=== PATIENT | female | born 1990 | race American Indian/Alaskan Native ===

== ENCOUNTER 2017-04-23 06:27 | Day surgery (SDC) | payer BC ==
[2017-04-23] MEDS ORDERED: ZOFRAN ONE (07:07)
[2017-04-23] MEDS ORDERED: DECADRON ONE (07:07)
[2017-04-23] MEDS ORDERED: ZEMURON IV ONE (07:07)
[2017-04-23] MEDS ORDERED: XYLOCAINE MPF 2% ONE (07:07)
[2017-04-23] MEDS ORDERED: DIPRIVAN 10 MG/ML IV ONE ×2 (07:08→10:01)
[2017-04-23] MEDS ORDERED: SUBLIMAZE ONE ×2 (07:08→09:54)
--- NOTE | 2017-04-23 07:25 | Anesthesia Consultation ---
Anesthesia Consult and Med Hx Date of service: 04/23/17 - Airway Anesthetic Teeth Evaluation: Good ROM Head & Neck: Adequate Mental/Hyoid Distance: Adequate Mallampati Class: Class II Intubation Access Assessment: Probably Good - Pulmonary Exam CTA: Yes - Cardiac Exam Cardiac Exam: RRR - Pre-Operative Health Status ASA Pre-Surgery Classification: ASA2 Proposed Anesthetic Plan: General - Pulmonary Hx Smoking: No Hx Sleep Apnea: No - Cardiovascular System Hx Hypertension: Yes - Central Nervous System Hx Psychiatric Problems: No - Hematic Hx Anemia: Yes ("RESOLVED" ) - Other Systems Hx Alcohol Use: Yes Hx Substance Use: Yes (OCCASIONAL MARIJUANA 1/ EVERY 2 MONTHS) Hx Cancer: No Hx Obesity: Yes
--- NOTE | 2017-04-23 07:26 | Anesthesia Day of Surgery ---
Anesthesia Day of Surgery - Day of Surgery Patient Examined: Yes Patient H&P Reviewed: Yes Patient is NPO: Yes
[2017-04-23] MEDS ORDERED: PEPCID PO NR ×2 (08:00→10:00)
[2017-04-23] MEDS ORDERED: VERSED IV NR ×2 (08:00→10:00)
[2017-04-23] MEDS ORDERED: LACTATED RINGERS 1,000 ML IV SCH ×2 (08:00→10:00)
[2017-04-23] MEDS ORDERED: PERCOCET 5/325 PO PRN (09:19)
[2017-04-23] MEDS ORDERED: NEOSTIGMINE ONE (09:25)
[2017-04-23] MEDS ORDERED: ROBINUL ONE ×2 (09:25)
[2017-04-23] MEDS ORDERED: DILAUDID ONE (09:27)
--- NOTE | 2017-04-23 09:35 | Discharge Summary ---
Short Stay Discharge Plan Weight Bearing Status: Full Weight Bearing Diet: regular Wound: remove dressing (72hrs) Follow up with: PRIMARY CAREMD [Primary Care Provider] - 6 Weeks WORK,LUANNE Parsons JR, MD [Staff Physician] - 7 Days
--- NOTE | 2017-04-23 09:36 | Short Stay Summary ---
Short Stay Documentation Date of service: 04/23/17 - Allergies and Medications Current Medications: Allergies No Known Allergies Allergy (Verified 08/25/15 08:50) Home Medications Medication Instructions Recorded Confirmed Last Taken Type Ibuprofen [Motrin 600 MG tab] 600 mg PO Q6HR PRN 02/26/17 04/11/17 Unknown History Active Medications Famotidine (Pepcid) 20 mg PO PREOP NR Stop: 04/23/17 15:00 Hydromorphone HCl (Dilaudid) 0.5 mg IV Q10MIN PRN PRN Reason: Pain , Severe (7-10) Stop: 04/23/17 15:00 Lactated Ringer's (Lactated Ringers) 1,000 mls @ 100 mls/hr IV DIRECT BROOKS Midazolam HCl (Versed) 2 mg IV PREOP NR Stop: 04/23/17 23:59 - Brief post op/procedure progress note Date of procedure: 04/23/17 Pre-op diagnosis: Macromastia Post-op diagnosis: same Procedure: Bilateral Breast Reduction Anesthesia: GETA Surgeon: LUANNE CALIX JR Estimated blood loss: 50-100ml Specimen disposition: to lab Condition: stable - Hospital course Hospital course: Uneventful - Disposition Condition at discharge: Good Short Stay Discharge Plan Follow up with: LUANNE CALIX JR, MD [Staff Physician] - 7 Days PRIMARY CAREMD [Primary Care Provider] - 6 Weeks
[2017-04-23] MEDS ORDERED: WATER FOR IRRIG STERILE IR ONE (09:49)
[2017-04-23] MEDS ORDERED: ANCEF/STERILE WATER 2 GM/20 ML IV NR (11:00)
[2017-04-23] MEDS ORDERED: NEO SYNEPHRINE/NS Syringe(OR USE) IV ONE (11:00)
[2017-04-23] MEDS ORDERED: LACTATED RINGERS 1,000 ML ONE (11:11)
--- NOTE | 2017-04-23 13:02 | Post Anesthesia Evaluation ---
- Post Anesthesia Evaluation Patient Participated: Yes Airway Patent: Yes Stable Respiratory Function: Yes Nausea/Vomiting: No Temp > 96.8F: Yes Pain Manageable: Yes Adequeate Hydration: Yes Anesthesia Complications: No Block Receding Appropriately: Not Applicable Patient on Ventilator: No
[2017-04-23] MEDS: DILAUDID IV PRN ×4 (13:22→14:13)
[2017-04-23] MEDS ORDERED: TORADOL IV PRN (14:17)
[2017-04-23] MEDS ORDERED: TORADOL ONE (14:22)
[2017-04-23] MEDS ORDERED: TRANSDERM-SCOP TD ONE (16:20)
[2017-04-23] MEDS ORDERED: PERCOCET 5/325 PO ONE (16:20)
[2017-04-23 18:38] VITALS: BP 142/77
--- NOTE | 2017-05-14 02:55 | Operative Report ---
PREOPERATIVE DIAGNOSIS: Macromastia. POSTOPERATIVE DIAGNOSIS: Macromastia. PROCEDURE: Bilateral reduction mammoplasty. SURGEON: Jaylen Luis MD. FORESTRY BIOLOGY SPECIALIST: Beto Villavicencio CSA FINDINGS: Right breast 1880 g removed, left breast 1500 g removed. DESCRIPTION OF PROCEDURE: The patient was brought to the operating room and placed on the table in supine position. Following administration of general anesthesia, bilateral breasts were prepped with Betadine solution, draped in usual sterile manner. A #10 blade scalpel was used to make a circumareolar skin incision followed by de-epithelization of inferior dermal pedicle. Modified Riggins pattern skin markings were incised with scalpel, deepened through subcutaneous fat and breast tissue using [place] electrocautery. Skin flaps were raised in standard manner as was fashioning of an inferior central mound pedicle. Breasts tissue was resected and sent to pathology as specimen. Hemostasis controlled using the electrocautery. Closure was performed over 10-mm Adolfo drain using interrupted and running subcuticular 2-0 Monocryl sutures. Mastisol, Steri-Strips, and sterile dressings applied. The patient tolerated the procedure well and returned to recovery room in stable condition. JOB# [id number] FTW/NTS
== END 2017-04-23 17:10 | disposition home or self-care (01) ==
LOC: OR 06:27
PROVIDERS: ATTEND Plastic Surgery
DX: N62 Hypertrophy of breast (principal); I10 Essential (primary) hypertension; F12.90 Cannabis use, unspecified, uncomplicated; E66.9 Obesity, unspecified; Z68.41 Body mass index [BMI] 40.0-44.9, adult; Z72.89 Other problems related to lifestyle; Z87.891 Personal history of nicotine dependence; Z83.3 Family history of diabetes mellitus; Z82.49 Family history of ischemic heart disease and other diseases of the circulatory system
CPT/HCPCS: 19318; 81025; 88305; J1100; J1170; J1885; J2250; J2370; J2405; J2704; J2710; J3010; J7120

== ENCOUNTER 2017-04-23 22:05 | Emergency (ER) | payer BC ==
[2017-04-23 23:44] VITALS: BP 148/92
[2017-04-24 00:30] LABS: Basophils % (Auto) 0.4 % (0.0-1.8); Hemoglobin 11.6 gm/dl (10.1-14.3); Mean Corpuscular HGB Conc 33 % (30-34); Mean Corpuscular Hemoglobin 30 pg (28-32); Mean Corpuscular Volume 91 fl (79-97); Platelet Count 291 K/mm3 (140-440); Red Blood Count 3.87 M/mm3 (3.65-5.03); Red Cell Distribution Width 13.4 % (13.2-15.2); White Blood Count 15.7 K/mm3 (4.5-11.0)
[2017-04-24] MEDS ORDERED: ZOFRAN ODT PO ONE (00:32)
--- NOTE | 2017-04-24 00:43 | Emergency Department Report ---
- General Chief Complaint: Wound/Laceration Stated Complaint: POST OP BLEEDING Time Seen by Provider: 04/24/17 00:04 Source: patient Mode of arrival: Ambulatory Limitations: No Limitations - History of Present Illness Initial Comments: 27-year-old female with a past medical history of hypertension presents to the hospital complaining of bleeding from her surgical sites. Patient was discharged today as well as other regional after receiving a breast reduction a lift performed by Dr. Bey. Patient was nauseated after discharge secondary to anesthesia. When she attempted to eat she has several episodes of vomiting. While sitting in a recliner chair and after vomiting patient looked down and noticed that she had bleeding at the area of her nipples and breasts to her breast binder. Patient was told not to remove her breast binder for 72 hours and therefore did not open it up to take a look. Patient also states that she had a clots in her left RONALDO drain but they were able to milk it out. She attempted to call her physician prior to arrival. - Related Data Home Medications Medication Instructions Recorded Confirmed Last Taken Carvedilol [Coreg] 6.25 mg PO BID 04/23/17 04/23/17 04/22/17 21:00 HYDROcodone/APAP 5-325 [[place] 1 each PO Q6HR PRN 04/23/17 04/23/17 04/23/17 17: 00 5/325] Previous Rx's Medication Instructions Recorded Last Taken Type Ondansetron [Zofran Odt] 4 mg PO Q8HR PRN #20 tab.rapdis 04/24/17 Unknown Rx Allergies Allergy/AdvReac Type Severity Reaction Status Date / Time No Known Allergies Allergy Verified 04/23/17 23:40 ED Review of Systems ROS: Stated complaint: POST OP BLEEDING Other details as noted in HPI Comment: All other systems reviewed and negative Other: Constitutional: No fevers chills Eyes: No eye pain visual changes ENT: No ear pain or throat pain Neck: Denies pain Respiratory: Denies cough wheezing shortness of breath Cardiovascular: Denies chest pain, palpitations, syncope GI: Denies abdominal pain, nausea, vomiting, diarrhea : Denies dysuria Musculoskeletal: Denies back pain Skin: As per HPI Neurologic: Denies headache, numbness, weakness Psychiatric: Denies suicidal ideation, hallucinations Hematological/lymphatic: Denies easy bruising, lymphadenopathy ED Past Medical Hx - Past Medical History Previous Medical History?: Yes Hx Hypertension: Yes Hx HIV: No - Surgical History Past Surgical History?: Yes Additional Surgical History: breast reduction today here as [facility] - Social History Smoking Status: Former Smoker Substance Use Type: Alcohol, Marijuana - Medications Home Medications: Home Medications Medication Instructions Recorded Confirmed Last Taken Type Carvedilol [Coreg] 6.25 mg PO BID 04/23/17 04/23/17 04/22/17 21:00 History HYDROcodone/APAP 5-325 [[place] 1 each PO Q6HR PRN 04/23/17 04/23/17 04/23/17 17: 00 History 5/325] Ondansetron [Zofran Odt] 4 mg PO Q8HR PRN #20 tab.rapdis 04/24/17 Unknown Rx ED Physical Exam - General Limitations: No Limitations - Other Other exam information: General: No limitations, patient is alert in no acute distress Head exam: Atraumatic, normocephalic Eyes exam: Normal appearance, pupils equal reactive to light, extraocular movements intact ENT: Moist mucous membrane, normal oropharynx Neck exam: Normal inspection, full range of motion, no meningismus nontender Respiratory exam: Clear to auscultation bilateral, no wheezes, rales, crackles Cardiovascular: Normal rate and rhythm Breast: Breast binder partially removed to examine area pupil. Positive Steri- Strips. No active bleeding. Dried blood noted at the binder. Patient has bilateral RONALDO drains with sanguinous drainage. Abdomen: Soft, nondistended, and nontender, with normal bowel sounds, no rebound, or guarding Extremity: Full range of motion normal inspection no deformity Back: Normal Inspection, full range of motion, no tenderness Neurologic: Alert, oriented x3, cranial nerves intact, no motor or sensory deficit Psychiatric: normal affect, normal mood Skin: Warm, dry, intact ED Course Vital Signs 04/23/17 04/23/17 22:21 23:43 Temperature 98.4 F Pulse Rate 91 H 102 H Respiratory 18 20 Rate Blood Pressure 146/99 Blood Pressure 148/92 [Left] O2 Sat by Pulse 98 100 Oximetry - Reevaluation(s) Reevaluation #1: 04/24/17 00:42 Zofran provided for persistent nausea - Consultations Consultation #1: 04/24/17 00:39 case d/w Dr Bey. I explained there are no active signs of bleeding. He recommends patient follow up as instructed and continue to milk RONALDO drains tubing as needed. ED Medical Decision Making - Lab Data Result diagrams: 04/24/17 00:19 04/24/17 00:19 Lab Results 04/24/17 04/24/17 Range/Units 00:19 00:19 WBC 15.7 H (4.5-11.0) K/mm3 RBC 3.87 (3.65-5.03) M/mm3 Hgb 11.6 (10.1-14.3) gm/dl Hct 35.0 (30.3-42.9) % MCV 91 (79-97) fl MCH 30 (28-32) pg MCHC 33 (30-34) % RDW 13.4 (13.2-15.2) % Plt Count 291 (140-440) K/mm3 Lymph % (Auto) 5.8 L (13.4-35.0) % [place] % (Auto) 5.0 (0.0-7.3) % Eos % (Auto) 0.0 (0.0-4.3) % Baso % (Auto) 0.4 (0.0-1.8) % Lymph # 0.9 L (1.2-5.4) K/mm3 [place] # 0.8 (0.0-0.8) K/mm3 Eos # 0.0 (0.0-0.4) K/mm3 Baso # 0.1 (0.0-0.1) K/mm3 Seg Neutrophils % 88.8 H (40.0-70.0) % Seg Neutrophils # 13.9 H (1.8-7.7) K/mm3 Sodium 135 L (137-145) mmol/L Potassium 4.0 (3.6-5.0) mmol/L Chloride 97.9 L (98-107) mmol/L Carbon Dioxide 24 (22-30) mmol/L Anion Gap 17 mmol/L BUN 13 (7-17) mg/dL Creatinine 0.5 L (0.7-1.2) mg/dL Estimated GFR > 60 ml/min BUN/Creatinine Ratio 26.00 % Glucose 117 H (65-100) mg/dL Calcium 8.8 (8.4-10.2) mg/dL - Medical Decision Making Plan to discharge patient home to continue her current outpatient management. We'll provide Zofran for persistent postanesthesia nausea - Differential Diagnosis postoperative bleeding, wound dehiscence, RONALDO drain malfunction. Critical Care Time: No Critical care attestation.: If time is entered above; I have spent that time in minutes in the direct care of this critically ill patient, excluding procedure time. ED Disposition Clinical Impression: Postoperative bleeding from incision, History of bilateral breast reduction surgery, Postoperative nausea and vomiting Disposition: TO HOME OR SELFCARE Is pt being admited?: No Does the pt Need Aspirin: No Condition: Stable Instructions: Acute Wound Care (ED), [place] Drain Care (ED), Acute Nausea and Vomiting (ED) Additional Instructions: Follow-up with your surgeon as planned. Take nausea medication as needed. Return if symptoms worsen. Prescriptions: Ondansetron [Zofran Odt] 4 mg PO Q8HR PRN #20 tab.rapdis PRN Reason: Nausea And Vomiting Referrals: LUANNE CALIX JR, MD [Staff Physician] - 3-5 Days Time of Disposition:
[2017-04-24 00:48] LABS: Anion Gap 17 mmol/L; Blood Urea Nitrogen 13 mg/dL (7-17); Calcium 8.8 mg/dL (8.4-10.2); Carbon Dioxide 24 mmol/L (22-30); Chloride 97.9 mmol/L (98-107); Glucose 117 mg/dL (65-100); Sodium 135 mmol/L (137-145)
== END 2017-04-24 01:11 | disposition home or self-care (01) ==
LOC: ED 22:05
DX: L76.22 Postprocedural hemorrhage of skin and subcutaneous tissue following other procedure (principal); I10 Essential (primary) hypertension; F12.10 Cannabis abuse, uncomplicated; Z87.891 Personal history of nicotine dependence; Z98.86 Personal history of breast implant removal
CPT/HCPCS: 36415; 80048; 85025; 99282; Q0162

== ENCOUNTER 2017-05-09 10:57 | Outpatient (CLI) | payer BC ==
--- NOTE | 2017-05-09 14:05 | Ultrasound Report ---
Left whole breast ultrasound including all 4 quadrants and subareolar region. History: Status post breast reduction surgery with pain and tenderness. Findings: There are 3 fluid collections within the left breast, the largest of which measures 6.8 x 2.5 cm. 2 additional fluid collections measure 4.3 cm x 1.3 cm and 4.8 cm x 2.1 cm. Impression: At least 3 fluid collections are seen in the left breast as detailed above. These probably represent postoperative seromas although abscess cannot be excluded. BI-RADS code: 3. Recommendation: Short-term sonographic followup after appropriate management.
[2017-05-10] MEDS ORDERED: NACL 0.9% 1000 ML 1,000 ML ONE (09:51)
== END 2017-05-09 10:58 | disposition home or self-care (01) ==
LOC: US 10:57
PROVIDERS: ATTEND Plastic Surgery
DX: T79.2XXA Traumatic secondary and recurrent hemorrhage and seroma, initial encounter (principal); I10 Essential (primary) hypertension; D64.9 Anemia, unspecified; F12.10 Cannabis abuse, uncomplicated; Z87.891 Personal history of nicotine dependence; Z98.890 Other specified postprocedural states
CPT/HCPCS: J7030

== ENCOUNTER 2017-05-10 08:19 | Day surgery (SDC) | payer BC ==
[2017-05-10] MEDS ORDERED: XYLOCAINE 1% 20 mL ONE (09:47)
[2017-05-10] MEDS ORDERED: ANCEF/STERILE WATER 2 GM/20 ML 2 GM/20 ML SYRINGE IV ONE (09:47)
[2017-05-10] MEDS ORDERED: NACL 0.9% 500 ML IR ONE (09:47)
[2017-05-10] MEDS: VERSED ONE ×2 (10:22→10:51)
[2017-05-10] MEDS: SUBLIMAZE ONE ×3 (10:22→10:49)
[2017-05-10] MEDS ORDERED: SUBLIMAZE ONE (11:15)
[2017-05-10] MEDS ORDERED: VERSED ONE (11:15)
[2017-05-10] MEDS ORDERED: NORCO 5/325 PO PRN (12:43)
--- NOTE | 2017-05-10 13:24 | Operative Report ---
Operative Report Operative Report: Procedure: Ultrasound and fluoroscopic guided drainage of a left breast seroma. Date: 05/10/2017 Physician: Shakir Borrego M.D. Indication: This is a 27-year-old female status post bilateral mammoplasty. She was found to have a left breast collection. Drainage was requested. Technique: Informed consent was obtained. The patient was placed in the supine position on the procedure table. She was prepped and draped in the usual sterile fashion. A timeout was performed. Preliminary sonography of the left breast was performed, and images were acquired. Local anesthetic was administered. Under ultrasound guidance, an 18-gauge single wall needle was advanced into the inferior collection. Contrast was injected to confirm placement and delineate the shape of the collection. Local anesthetic was again applied, and an 18- gauge needle was used to access the superior collection. Contrast was again injected. The 18-gauge needle was exchanged for a combination of a short vertebral catheter and Glidewire. These were used to traverse from the superior collection into the inferior collection via a small channel between the two. The Glidewire was replaced with an Amplatz wire. Over the Amplatz wire, serial tissue dilation was performed. An 8 Danish all purpose drainage catheter with added sideholes was advanced. The locking loop was formed in the inferior collection. Contrast was injected, and aspiration was performed. The drain was sutured to the skin with 2-0 Ethilon suture and connected to a suction drainage bag. Sterile dressings were placed. The patient tolerated the procedure well, without immediate complication. Discussion: Contrast injection into the left breast collection reveals 2 adjacent collections, with a narrow channel bridging them. There was successful placement of an 8 [place] drainage catheter into these collections. Extra side holes were added to the catheter in order to facilitate drainage of the superior collection. Contrast injection and aspiration shows that the newly placed drain filled and decompressed of the cavity well. The appearance of the fluid was dark red, which suggests this may be a combination of seroma and hematoma. I showed the patient and her fianc how to flush the drain and manage the drainage bag. She will be discharged with enough supplies for 2 weeks. She has an appointment for follow-up with plastic surgery on May 18. Specimen: None Estimated blood loss: Less than 5 mL
[2017-05-10 14:44] VITALS: BP 126/79
== END 2017-05-10 14:45 | disposition home or self-care (01) ==
LOC: CATH 08:19 → CATHLABREC 08:19
PROVIDERS: ATTEND Radiology Diagnostic Radiology
DX: L76.34 Postprocedural seroma of skin and subcutaneous tissue following other procedure (principal); Y83.8 Other surgical procedures as the cause of abnormal reaction of the patient, or of later complication, without mention of misadventure at the time of the procedure
CPT/HCPCS: 10030; 76998; C1751; C1769; J0690; J2250; J3010; Q9967

== ENCOUNTER 2017-05-17 14:38 | Outpatient (CLI) | payer BC ==
--- NOTE | 2017-05-19 11:55 | Ultrasound Report ---
LEFT BREAST ULTRASOUND: 05/17/17 14:38:00 CLINICAL: Followup postop seromas. COMPARISON: 05/09/17 FINDINGS: Ultrasound of the left breast demonstrates smaller fluid collections than on the prior exam. The largest is at 3 o'clock approximately 5 cm from the nipple and measures 5.1 x 1.7 x 5.8 cm compared to 6.8 x 2.4 x 6.8 cm on the last exam. The next largest is at 12 o'clock 5 cm from the nipple and measures 2.9 x 1.5 x 2.0 cm compared to 4.8 x 2.0 x 2.1 cm on the last exam. Additional fluid collections a 12 o'clock 5 cm from nipple measures 3.0 x 1.5 x 0.8 cm and at 3 o'clock 8 cm from the nipple measuring 1.8 x 1.3 x 5.6 cm. IMPRESSION: Postop seromas with decrease in size compared to the prior exam. No findings to suggest abscess. BI-RADS 2--Benign RECOMMENDATION: Clinical followup.
== END 2017-05-17 14:39 | disposition home or self-care (01) ==
LOC: US 14:38
PROVIDERS: ATTEND Plastic Surgery
DX: T79.2XXA Traumatic secondary and recurrent hemorrhage and seroma, initial encounter (principal); I10 Essential (primary) hypertension; D64.9 Anemia, unspecified; Z87.891 Personal history of nicotine dependence; Z98.890 Other specified postprocedural states

== ENCOUNTER 2017-05-18 12:31 | Day surgery (SDC) | payer BC ==
[2017-05-18 13:47] LABS: Basophils % (Auto) 1.2 % (0.0-1.8); Hematocrit 28.5 % (30.3-42.9); Hemoglobin 9.2 gm/dl (10.1-14.3); Mean Corpuscular HGB Conc 32 % (30-34); Mean Corpuscular Hemoglobin 29 pg (28-32); Mean Corpuscular Volume 89 fl (79-97); Platelet Count 364 K/mm3 (140-440); Red Cell Distribution Width 14.6 % (13.2-15.2); White Blood Count 4.8 K/mm3 (4.5-11.0)
[2017-05-18] MEDS ORDERED: DILAUDID ONE (13:55)
[2017-05-18 13:58] LABS: INR 0.89 (0.87-1.13)
[2017-05-18 13:59] LABS: Partial Thromboplastin Time 35.4 Sec. (24.2-36.6)
[2017-05-18 14:01] LABS: Anion Gap 17 mmol/L; Blood Urea Nitrogen 10 mg/dL (7-17); Carbon Dioxide 23 mmol/L (22-30); Chloride 102.8 mmol/L (98-107); Glucose 93 mg/dL (65-100); Sodium 139 mmol/L (137-145)
--- NOTE | 2017-05-18 14:15 | Short Stay Summary ---
Short Stay Documentation Date of service: 05/18/17 - History Principal diagnosis: Left breast seroma Past Surgical History: Other (breast reduction) Social history: no significant social history - Allergies and Medications Current Medications: Allergies No Known Allergies Allergy (Verified 04/23/17 23:40) Home Medications Medication Instructions Recorded Confirmed Last Taken Type Carvedilol [Coreg] 6.25 mg PO BID 04/23/17 05/10/17 05/09/17 History HYDROcodone/APAP 5-325 [[place] 1 each PO Q6HR PRN 04/23/17 05/10/17 3 Days Ago History 5/325] Ondansetron [Zofran Odt] 4 mg PO Q8HR PRN #20 tab.rapdis 04/24/17 05/10/17 Unknown Rx HYDROcodone/APAP 7.5-325 [[place] 1 each PO Q6HR PRN #14 tablet 05/10/17 Unknown Rx 7.5/325] - Physical exam General appearance: no acute distress HEENT: Atraumatic Lungs: Normal air movement Breasts: tender (secondary to adhesive, no purulent exudates) Heart: Regular rate Gastrointestinal: normal Female Genitourinary: deferred Rectal Exam: deferred - Brief post op/procedure progress note Date of procedure: 05/18/17 Pre-op diagnosis: left breast seroma Post-op diagnosis: same Procedure: drainage catheter evaluation and removal Anesthesia: local Surgeon: LOS RITCHIE Estimated blood loss: none Specimen disposition: to lab Condition: stable - Disposition Condition at discharge: Good Disposition: DC-[id number] TO HOME OR SELFCARE Short Stay Discharge Plan Activity: advance as tolerated Weight Bearing Status: Weight Bear as Tolerated Diet: regular Wound: keep clean and dry, per your surgeon's advice Follow up with: PRIMARY CARE, [Primary Care Provider] - 7 Days
[2017-05-18 14:47] VITALS: BP 134/82
--- NOTE | 2017-05-23 14:21 | Operative Report ---
Operative Report Operative Report: EXAM: CONTRAST INJECTION OF INDWELLING DRAINAGE CATHETER, DRAINAGE CATHETER REMOVAL CLINICAL INDICATION: LEFT BREAST SEROMA, DECREASED DRAINAGE OUTPUT DATE: 05/18/2017 PROCEDURE: Following an explanation of the risks, benefits and alternatives; and informed consent was obtained. The patient was brought to the cardiac catheterization room and placed in supine position on the examination table. Her indwelling drainage catheter was prepped and draped in the usual sterile fashion. Contrast was injected under fluoroscopy which demonstrates no residual seroma cavity. The patient does have a previous ultrasound which demonstrates a different seroma nonresponsive to drain it. Given the fact that the drainage catheter is no longer draining and the seroma cavity has collapsed, catheter was cut and the drainage catheter removed intact. Sterile dressings were then applied. The patient tolerated the procedure well. There were no immediate postprocedure complications. Continuous cardiopulmonary monitoring was visualized. No sedation was given. PROCEDURE: 1) Contrast injection of indwelling drainage catheter in left breast seroma demonstrating no residual seroma cavity, the drainage catheter was therefore removed.
== END 2017-05-18 15:00 | disposition home or self-care (01) ==
LOC: CATHLABREC 12:31
PROVIDERS: ATTEND Radiology Diagnostic Radiology
DX: L76.34 Postprocedural seroma of skin and subcutaneous tissue following other procedure (principal); Z98.890 Other specified postprocedural states; Y83.8 Other surgical procedures as the cause of abnormal reaction of the patient, or of later complication, without mention of misadventure at the time of the procedure
CPT/HCPCS: 36415; 49424; 80048; 85025; 85610; 85730; 87076; 87116; 87186; J1170; Q9967